=== PATIENT | female | born 1945 | race Caucasian/White ===

== ENCOUNTER 2022-11-28 15:08 | Outpatient (CLI) | payer MEDICARE, SELFPAY ==
[2022-11-28 21:15] LABS: Albumin* 4.8 g/dL (3.3-5.0); Chloride* 102 mmol/L (96-114)
[2022-11-28 21:16] LABS: Potassium* 4.6 mmol/L (3.6-5.1); Sodium* 137 mmol/L (135-149)
[2022-11-28 21:18] LABS: Alkaline Phosphatase* 80 U/L (40-150); Aspartate Amino Transferase* 23 U/L (12-35); Bilirubin Total* 0.5 mg/dL (0.1-1.5); Blood Urea Nitrogen* 23 mg/dL (7-30); Carbon Dioxide* 27 mmol/L (20-32); Cholesterol* 225 mg/dL (90-199); Estimated Glomerular Filt Rate 59 ml/min; Glucose* 87 mg/dL (60-115); Total Protein* 7.3 g/dL (6.0-8.3)
[2022-11-28 21:19] LABS: Alanine Aminotransferase* 18 U/L (4-35); Calcium* 9.5 mg/dL (8.4-10.6); HDL Cholesterol* 59 mg/dL (>=50); LDL Cholesterol Calculated 128 mg/dL (<100); Triglycerides* 189 mg/dL (40-149)
[2022-11-28 23:21] LABS: Vitamin D 25 Hydroxy* 19 ng/mL (30-80)
== END 2022-11-28 15:09 | disposition home or self-care (01) ==
PROVIDERS: PCP Family Medicine; Visit Provider Family Medicine
DX: Z00.00 Encounter for general adult medical examination without abnormal findings (principal); E78.5 Hyperlipidemia, unspecified; I10 Essential (primary) hypertension; M85.80 Other specified disorders of bone density and structure, unspecified site
CPT/HCPCS: 80053; 80061; 82306

== ENCOUNTER 2023-01-29 09:14 | Outpatient (CLI) | payer MEDICARE, SELFPAY | END 2023-01-29 09:15 | disposition home or self-care (01) | LOC: NFLDREF 01-30 15:04 | PROVIDERS: PCP Family Medicine; Referring Provider Family Medicine; Visit Provider Pediatrics | DX: R73.03 Prediabetes (principal); E78.5 Hyperlipidemia, unspecified; M85.852 Other specified disorders of bone density and structure, left thigh | CPT/HCPCS: 80061; 82306 ==

== ENCOUNTER 2023-08-09 09:50 | Outpatient (CLI) | payer MEDICARE, SELFPAY | END 2023-08-09 09:51 | disposition home or self-care (01) | LOC: NFLDREF 08-10 13:29 | PROVIDERS: PCP Family Medicine; Referring Provider Family Medicine; Visit Provider Family Medicine | DX: R73.03 Prediabetes (principal); E78.5 Hyperlipidemia, unspecified; I10 Essential (primary) hypertension | CPT/HCPCS: 80053; 80061 ==

== ENCOUNTER 2024-02-12 09:45 | Outpatient (CLI) | payer MEDICARE, SELFPAY | END 2024-02-12 09:46 | disposition home or self-care (01) | LOC: NFLDREF 02-13 07:25 | PROVIDERS: PCP Family Medicine; Referring Provider Family Medicine; Visit Provider Family Medicine | DX: Z00.00 Encounter for general adult medical examination without abnormal findings (principal); E55.9 Vitamin D deficiency, unspecified; E78.5 Hyperlipidemia, unspecified; I10 Essential (primary) hypertension; M85.80 Other specified disorders of bone density and structure, unspecified site; R73.03 Prediabetes | CPT/HCPCS: 80053; 80061; 82306 ==

== ENCOUNTER 2025-02-04 09:44 | Outpatient (CLI) | payer MEDICARE, SELFPAY | END 2025-02-04 09:45 | disposition home or self-care (01) | LOC: NFLDREF 02-06 19:35 | PROVIDERS: PCP Family Medicine; Referring Provider Family Medicine; Visit Provider Family Medicine | DX: I10 Essential (primary) hypertension (principal); E55.9 Vitamin D deficiency, unspecified; E78.5 Hyperlipidemia, unspecified; M85.80 Other specified disorders of bone density and structure, unspecified site; M81.0 Age-related osteoporosis without current pathological fracture | CPT/HCPCS: 80053; 80061; 82306 ==